=== PATIENT | female | born 1985 | race Caucasian/White ===

== ENCOUNTER 2018-12-08 08:56 | Outpatient (CLI) | payer OTHER ==
--- NOTE | 2018-12-08 10:31 | RAD ---
EXAM: XR Lumbar Spine Comp W Bending DATE: 12/08/2018 12:00 AM INDICATION: Mechanical back pain and lumbar radiculopathy COMPARISON: Lumbar spinal radiograph dated November 21, 2007 FINDING: There is worsening disc disc degenerative disease at L5-S1. This is moderate in severity. T he lateral flexion and extension radiographs and straight no abnormal translational motion. No pars defect is evident. There is mild facet osteoarthrosis at L4-5. No acute fracture is evident. IMPRESSION:Worsening moderate disc degenerative disease at L5-S1 with mild facet osteoarthrosis at L4 -5. No abnormal translational motion.
--- NOTE | 2018-12-08 10:48 | MRI ---
MRI of lumbar spine without contrast: 12/08/2018 COMPARISON: None HISTORY: Lumbar radiculopathy, low back pain radiating down both legs, left greater than right TECHNIQUE: Multiplanar multisequence MR imaging of the lumbar spine is obtained without contrast FINDINGS: On the basis of 5 lumbar type vertebral bodies, the conus medullaris terminates at T12-L1. The sagittal STIR imaging demonstrates no focal area of osseous marrow edema. T12-L1: Intervertebral disc height and signal intensity is within normal limits with no significant c entral canal or neural foraminal stenosis. L1-2: Intervertebral disc height and signal intensity is within normal limits with no central canal o r neural foraminal stenosis. L2-3: Intervertebral disc height and signal intensity is within normal limits. No central canal or ne ural foraminal stenosis. L3-4: Intervertebral disc height and signal intensity within normal limits. No significant central ca nal or neural foraminal stenosis. L4-5: Intervertebral disc height and signal intensity within normal limits with no significant centra l canal or neural foraminal stenosis. L5-S1: There is disc space narrowing, disc desiccation, and degenerative endplate change. There is mi ld disc bulge. Facet hypertrophy and mild foraminal disc protrusion in the foraminal region on the left. There is mild fluid signal intensity within the facet joint on the left at L5-S1. There is minimal le ft lateral recess stenosis and mild left neural foraminal stenosis. The imaged retroperitoneal structures demonstrate no acute findings. IMPRESSION: Degenerative disc disease at L5-S1 as detailed above, left greater than right.
== END 2018-12-08 08:57 | disposition home or self-care (01) ==
LOC: BICMRI 08:56
DX: M47.26 Other spondylosis with radiculopathy, lumbar region (principal); M51.17 Intervertebral disc disorders with radiculopathy, lumbosacral region
CPT/HCPCS: 72100; 72148